=== PATIENT | female | born 1990 | race Caucasian/White ===

== ENCOUNTER 2019-08-03 14:36 | Outpatient (CLI) | payer OTHER ==
--- NOTE | 2019-08-03 16:06 | MRI ---
EXAM: MRI of the pelvis without and with contrast HISTORY: Leiomyoma of the uterus with vaginal bleeding for 3 months COMPARISON: None TECHNIQUE: Multiplanar multisequence MR images were obtained of the pelvis without and with IV contra st. FINDINGS: Cervix: Unremarkable Uterus: There is a 2.6 cm complex intramural mass demonstrating high T1 signal and T2 signal. These h igh T1 signal likely represents a small amount of hemorrhage. This mass is seen in the posterior uterine wall. After the administration of contrast, there is enhancement along the periphery of the m ass with filling in of enhancement on the delayed images. Junctional zone: Normal in thickness No free fluid is seen in the pelvis. Right ovary: Normal in appearance without visualized mass Left ovary: Normal in appearance without visualized mass Pelvic lymph nodes: No pelvic adenopathy Osseous structures: No marrow signal abnormality IMPRESSION: Complex uterine mass most likely represented an atypical fibroid. Although this would be extremely at ypical, the enhancement pattern follows the enhancement pattern often seen with hemangiomas of the liver and a hemangioma of the uterine wall cannot be excluded.
[2019-08-03] MEDS ORDERED: Magnevist 469MG/ML 20 ML VIAL ONE (16:18)
== END 2019-08-03 14:37 | disposition home or self-care (01) ==
LOC: BICMRI 14:36
PROVIDERS: ATTEND Obstetrics & Gynecology
DX: D25.9 Leiomyoma of uterus, unspecified (principal); N85.8 Other specified noninflammatory disorders of uterus; D18.09 Hemangioma of other sites
CPT/HCPCS: 72197; A9579